=== PATIENT | female | born 1940 | race African-American/Black ===

== ENCOUNTER 2020-08-15 18:28 | Inpatient (IN) | payer OTHER ==
[~2020-08-15] VITALS: Ht 160 cm; Wt 57.6 kg
[2020-08-15] MEDS ORDERED: CEFTRIAXONE 1 G PREMIX 50 ML IV ONE (18:45)
[2020-08-15 21:53] LABS: HEMATOCRIT. 30.7 % (36.0-48.0); MEAN CORPUSCULAR HEMOGLOBIN 29.5 pg (28.0-32.0); MEAN CORPUSCULAR VOLUME 90.7 fL (81.0-99.0); MEAN PLATELET VOLUME 8.2 fl (7.4-10.4); PLATELET 149 x1000/uL (130-400); RED BLOOD CELL COUNT 3.38 mill/uL (4.2-5.4); RED CELL DISTRIBUTION WIDTH 16.7 % (11.6-14.6)
[2020-08-15 22:14] LABS: PLATELET ESTIMATE NORMAL
[2020-08-15] MEDS ORDERED: SODIUM CHLORIDE 0.9% 1,000 ML IV ONE (23:00)
[2020-08-16 06:15] LABS: CLARITY URINE CLEAR (CLEAR); COLOR URINE YELLOW (YELLOW); KETONES URINE TRACE (NEGATIVE); LEUKOCYTE ESTERASE URINE 1+ (NEGATIVE); NITRITE URINE NEGATIVE (NEGATIVE); OCCULT BLOOD URINE 1+ (NEGATIVE); PROTEIN URINE 3+ (NEGATIVE); SPECIFIC GRAVITY URINE 1.017 (1.005-1.030); UROBILINOGEN URINE 0.2 E.U./dL (0.2-1.0)
[2020-08-16] MEDS ORDERED: ONDANSETRON HCL 4MG/2ML INJ IV PRN (10:30)
[2020-08-16] MEDS ORDERED: ACETAMINOPHEN 325MG TABLET PO PRN ×2 (10:30)
[2020-08-16] MEDS ORDERED: CLONIDINE 0.1MG TABLET PO PRN (10:30)
[2020-08-16] MEDS ORDERED: DIPHENHYDRAMINE 50MG/ML VIAL IV PRN (10:30)
[2020-08-16] MEDS ORDERED: MVI, ADULT NO.1 10 ML, FOLIC ACID 1 MG, THIAMINE HCL 100 MG in SODIUM CHLORIDE 0.9% 1,0... IV SCH ×4 (11:00)
[2020-08-16 12:00] VITALS: BP 124/77
[2020-08-16 13:28] VITALS: BP 124/77
[2020-08-16] MEDS: ENOXAPARIN 30MG/0.3ML SYR SUBCUT SCH (13:33)
[2020-08-16 16:00] VITALS: BP 136/74
[2020-08-16] MEDS ORDERED: ATEN50TA PO (19:34)
[2020-08-16] MEDS ORDERED: BALS750C6 PO (19:34)
[2020-08-16] MEDS ORDERED: OMEP20CA14 PO (19:34)
[2020-08-16] MEDS ORDERED: AMLO10TA80 PO (19:34)
[2020-08-16 20:00] VITALS: BP 127/67
[2020-08-16] MEDS ORDERED: ZOLPIDEM TARTRATE 5MG TABLET PO PRN (21:00)
[2020-08-17] VITALS: BP 127/75
[2020-08-17 04:00] VITALS: BP 131/69
[2020-08-17 08:00] VITALS: BP 126/62
[2020-08-17] MEDS: ENOXAPARIN 30MG/0.3ML SYR SUBCUT SCH (09:31)
[2020-08-17 12:00] VITALS: BP 127/73
[2020-08-17 16:00] VITALS: BP 142/75
[2020-08-17 20:00] VITALS: BP 110/78
[2020-08-17] MEDS: DEXT 5%/0.45% NACL KCL 10MEQ/L 1,000 ML IV SCH (21:35)
[2020-08-18] VITALS: BP 109/82
[2020-08-18 04:00] VITALS: BP 137/79
[2020-08-18 08:00] VITALS: BP 130/76
[2020-08-18] MEDS: DEXT 5%/0.45% NACL KCL 10MEQ/L 1,000 ML IV SCH (08:33)
[2020-08-18] MEDS: ENOXAPARIN 30MG/0.3ML SYR SUBCUT SCH (08:33)
[2020-08-18 12:00] VITALS: BP 124/82
[2020-08-18 16:00] VITALS: BP 144/87
[2020-08-18 16:08] LABS: HEMATOCRIT. 28.7 % (36.0-48.0); HEMOGLOBIN. 9.8 g/dL (12.0-16.0); MEAN CORPUSCULAR HEMOGLOBIN 30.5 pg (28.0-32.0); MEAN CORPUSCULAR VOLUME 89.5 fL (81.0-99.0); MEAN PLATELET VOLUME 8.2 fl (7.4-10.4); PLATELET 115 x1000/uL (130-400); RED CELL DISTRIBUTION WIDTH 17.1 % (11.6-14.6)
[2020-08-18] MEDS: MEGESTROL ACETATE 400 MG/10 ML UDC PO SCH (17:54)
[2020-08-18] MEDS: HYDROCODONE/ACETAMINOPHEN 5/325MG TABLET PO PRN (17:54)
[2020-08-18 20:00] VITALS: BP 132/77
[2020-08-18 22:07] LABS: PLATELET ESTIMATE DECREASED
[2020-08-19] VITALS: BP 131/77
[2020-08-19 04:00] VITALS: BP 117/84
[2020-08-19] MEDS: DEXT 5%/0.45% NACL KCL 10MEQ/L 1,000 ML IV SCH ×2 (05:22→12:20)
[2020-08-19 07:30] VITALS: BP 128/75
[2020-08-19] MEDS: ENOXAPARIN 30MG/0.3ML SYR SUBCUT SCH (09:00)
[2020-08-19] MEDS: MEGESTROL ACETATE 400 MG/10 ML UDC PO SCH ×2 (09:00→18:04)
[2020-08-19 12:00] VITALS: BP 104/47
[2020-08-19 16:00] VITALS: BP 136/58
[2020-08-19] MEDS ORDERED: POTASSIUM CHLORIDE 20MEQ/PACKET PO NR (17:00)
[2020-08-19 20:00] VITALS: BP 134/84
[2020-08-20] VITALS: BP 130/83
[2020-08-20] MEDS: DEXT 5%/0.45% NACL KCL 10MEQ/L 1,000 ML IV SCH ×2 (01:42→14:06)
[2020-08-20 04:00] VITALS: BP 109/88
[2020-08-20 06:49] LABS: HEMATOCRIT. 28.6 % (36.0-48.0); HEMOGLOBIN. 9.9 g/dL (12.0-16.0); MEAN CORPUSCULAR HEMOGLOBIN 30.7 pg (28.0-32.0); MEAN CORPUSCULAR VOLUME 89.2 fL (81.0-99.0); MEAN PLATELET VOLUME 8.3 fl (7.4-10.4); PLATELET 111 x1000/uL (130-400); RED BLOOD CELL COUNT 3.21 mill/uL (4.2-5.4); RED CELL DISTRIBUTION WIDTH 17.8 % (11.6-14.6)
[2020-08-20 06:57] LABS: INR 0.9; PROTHROMBIN TIME 9.9 sec (9.6-11.0)
[2020-08-20 07:26] LABS: VITAMIN B12 SERUM >2000 pg/mL pg/mL (211-911)
[2020-08-20 07:50] VITALS: BP 125/88
[2020-08-20] MEDS: MEGESTROL ACETATE 400 MG/10 ML UDC PO SCH ×3 (09:00→18:12)
[2020-08-20] MEDS: POTASSIUM CHLORIDE 20MEQ/PACKET PO NR ×2 (09:15→14:06)
[2020-08-20] MEDS ORDERED: THROMBIN (BOVINE) 5000 UNITS/VIAL TOP ONE (09:44)
[2020-08-20] MEDS ORDERED: BACITRACIN 50,000 UNITS/VIAL ONE (09:44)
[2020-08-20] MEDS ORDERED: LIDOCAINE HCL/EPINEPHRINE 1%-EPI 1:100,000 20 ML VIAL ONE (09:44)
[2020-08-20] MEDS ORDERED: SODIUM CHLORIDE 0.9% INJ 10ML FLUSH IVF ONE (09:44)
[2020-08-20 11:50] VITALS: BP 101/62
[2020-08-20] MEDS ORDERED: MAGNESIUM 2 G PREMIX 50 ML IV NR (12:00)
[2020-08-20 12:10] VITALS: BP 121/84
[2020-08-20 20:31] VITALS: BP 134/91
[2020-08-20 20:49] LABS: PLATELET ESTIMATE DECREASED
[2020-08-21 00:12] VITALS: BP 129/86
[2020-08-21 04:00] VITALS: BP 148/90
[2020-08-21 08:00] VITALS: BP 142/98
[2020-08-21] MEDS: DEXT 5%/0.45% NACL KCL 10MEQ/L 1,000 ML IV SCH ×2 (08:18→17:22)
[2020-08-21] MEDS: MEGESTROL ACETATE 400 MG/10 ML UDC PO SCH ×2 (09:00→17:23)
[2020-08-21] MEDS: MULTIVITAMINS,THER W-MINERALS TABLET PO SCH (09:48)
[2020-08-21] MEDS: ZINC SULFATE 220 MG ( 50 ) CAPSULE PO SCH (09:48)
[2020-08-21 12:00] VITALS: BP 133/85
[2020-08-21 20:00] VITALS: BP 101/70
[2020-08-22] VITALS: BP 111/68
[2020-08-22 04:00] VITALS: BP 107/65
[2020-08-22] MEDS: HYDROCODONE/ACETAMINOPHEN 5/325MG TABLET PO PRN ×2 (04:54→09:47)
[2020-08-22 08:00] VITALS: BP 110/75
[2020-08-22] MEDS: MEGESTROL ACETATE 400 MG/10 ML UDC PO SCH ×2 (08:25→16:30)
[2020-08-22] MEDS: ZINC SULFATE 220 MG ( 50 ) CAPSULE PO SCH (08:26)
[2020-08-22] MEDS: MULTIVITAMINS,THER W-MINERALS TABLET PO SCH (08:26)
[2020-08-22 12:00] VITALS: BP 113/74
[2020-08-22] MEDS: DEXT 5%/0.45% NACL KCL 10MEQ/L 1,000 ML IV SCH (13:46)
[2020-08-22 16:00] VITALS: BP 92/64
[2020-08-22 20:00] VITALS: BP 146/104
[2020-08-23] VITALS (43 sets, daily range): BP systolic 58–144; BP diastolic 41–95
[2020-08-23] MEDS: MULTIVITAMINS,THER W-MINERALS TABLET PO SCH ×2 (09:00→09:20)
[2020-08-23] MEDS: ZINC SULFATE 220 MG ( 50 ) CAPSULE PO SCH ×2 (09:00→09:20)
[2020-08-23] MEDS: MEGESTROL ACETATE 400 MG/10 ML UDC PO SCH ×2 (09:00→09:20)
[2020-08-23] MEDS ORDERED: NOREPINEPHRINE 8MG/250ML PMX 250 ML IV PRN ×2 (10:30→12:45)
[2020-08-23] MEDS ORDERED: MORPHINE SULFATE 2 MG/ML CPJ (NOT FOR IM USE) IV PRN (10:30)
[2020-08-23] MEDS ORDERED: ETOMIDATE 2MG/ML 10ML VIAL IV ONE (10:30)
[2020-08-23] MEDS ORDERED: PROPOFOL 10MG/ML 100ML 100 ML IV PRN ×2 (10:30→12:00)
[2020-08-23] MEDS ORDERED: IPRATROPIUM/ALBUTEROL 0.5-3(2.5)MG/3ML NEB HHN PRN (11:30)
[2020-08-23] MEDS: NOREPINEPHRINE 8 MG in DEXT 5% WATER 242 ML IV PRN ×2 (12:00→22:39)
[2020-08-23 13:07] LABS: MEAN CORPUSCULAR HEMOGLOBIN 30.4 pg (28.0-32.0); MEAN CORPUSCULAR VOLUME 90.9 fL (81.0-99.0); MEAN PLATELET VOLUME 7.7 fl (7.4-10.4); PLATELET 67 x1000/uL (130-400); RED BLOOD CELL COUNT 3.63 mill/uL (4.2-5.4); RED CELL DISTRIBUTION WIDTH 19.2 % (11.6-14.6)
[2020-08-23 13:14] LABS: INR 1.1; PROTHROMBIN TIME 11.4 sec (9.6-11.0)
[2020-08-23 13:17] LABS: CHLORIDE 112 mEq/L (98-107)
[2020-08-23 13:29] LABS: CREATINE KINASE 100 IU/L (26-192)
[2020-08-23 13:31] LABS: CREATINE KINASE MB FRACTION 9.1 ng/mL (0.5-3.6)
[2020-08-23] MEDS: IPRATROPIUM/ALBUTEROL 0.5-3(2.5)MG/3ML NEB HHN SCH ×2 (17:11→20:03)
[2020-08-23 17:12] LABS: BG BASE EXCESS -21.7 mmol/L (-2.0-2.0); BG CARBOXYHEMOGLOBIN 0.3 % (0.5-1.5); BG DEOXYHEMOGLOBIN 0.5 % (0.0-5.0); BG FRACTION INSPIRED OXYGEN 100; BG HCO3 ACT 5.5 mmol/L (22.0-26.0); BG METHEMOGLOBIN 0.4 % (0.0-1.5); BG OXYGEN SATURATION 99.5 % (92.0-98.5); BG OXYHEMOGLOBIN 98.8 % (94.0-97.0); BG PH 7.126 (7.350-7.450); BG PO2 374.5 mmHg (75.0-100.0); BG SAMPLE SITE RIGHT RADIAL; BG TOTAL HEMOGLOBIN 12.4 g/dL (12.0-18.0); BG VENT MODE VENT - AC
[2020-08-23] MEDS ORDERED: SODIUM BICARBONATE 8.4% 1 MEQ/ML 50ML SYR IV NR (17:36)
[2020-08-23 21:48] LABS: BG BASE EXCESS -13.3 mmol/L (-2.0-2.0); BG CARBOXYHEMOGLOBIN 0.3 % (0.5-1.5); BG DEOXYHEMOGLOBIN 1.1 % (0.0-5.0); BG FRACTION INSPIRED OXYGEN 70; BG HCO3 ACT 9.1 mmol/L (22.0-26.0); BG METHEMOGLOBIN 0.1 % (0.0-1.5); BG OXYGEN SATURATION 98.9 % (92.0-98.5); BG OXYHEMOGLOBIN 98.5 % (94.0-97.0); BG PCO2 14.9 mmHg (35.0-45.0); BG PH 7.402 (7.350-7.450); BG SAMPLE SITE RIGHT BRACHIAL; BG TOTAL HEMOGLOBIN 10.9 g/dL (12.0-18.0); BG VENT MODE VENT - AC
[2020-08-24] VITALS (47 sets, daily range): BP systolic 0–121; BP diastolic 0–72
[2020-08-24] MEDS: PHENYLEPHRINE 50 MG in DEXT 5% WATER 245 ML IV PRN ×3 (00:59→10:30)
[2020-08-24] MEDS: IPRATROPIUM/ALBUTEROL 0.5-3(2.5)MG/3ML NEB HHN SCH ×2 (01:06→09:40)
[2020-08-24 03:03] LABS: BG BASE EXCESS -11.8 mmol/L (-2.0-2.0); BG CARBOXYHEMOGLOBIN 0.2 % (0.5-1.5); BG DEOXYHEMOGLOBIN 2.5 % (0.0-5.0); BG FRACTION INSPIRED OXYGEN 60; BG HCO3 ACT 10.5 mmol/L (22.0-26.0); BG METHEMOGLOBIN 0.3 % (0.0-1.5); BG OXYGEN SATURATION 97.5 % (92.0-98.5); BG PCO2 16.4 mmHg (35.0-45.0); BG PH 7.425 (7.350-7.450); BG PO2 97.4 mmHg (75.0-100.0); BG SAMPLE SITE RIGHT RADIAL; BG TOTAL HEMOGLOBIN 10.2 g/dL (12.0-18.0); BG VENT MODE VENT - AC
[2020-08-24] MEDS: NOREPINEPHRINE 8 MG in DEXT 5% WATER 242 ML IV PRN ×3 (03:14→10:23)
[2020-08-24] MEDS ORDERED: SODIUM BICARBONATE 8.4% 1 MEQ/ML 50ML SYR IV NR (03:30)
[2020-08-24] MEDS: VASOPRESSIN 20 UNIT in SODIUM CHLORIDE 0.9% 99 ML IV PRN ×2 (03:45→10:30)
[2020-08-24] MEDS ORDERED: SODIUM BICARBONATE 50 MEQ in DEXTROSE 5% WATER 1,000 ML IV SCH (04:00)
[2020-08-24 06:05] LABS: HEMOGLOBIN. 10.2 g/dL (12.0-16.0); MEAN CORPUSCULAR HEMOGLOBIN 30.1 pg (28.0-32.0); MEAN CORPUSCULAR VOLUME 91.5 fL (81.0-99.0); MEAN PLATELET VOLUME 8.3 fl (7.4-10.4); PLATELET 66 x1000/uL (130-400); RED BLOOD CELL COUNT 3.39 mill/uL (4.2-5.4); RED CELL DISTRIBUTION WIDTH 18.9 % (11.6-14.6)
[2020-08-24] MEDS ORDERED: LIDOCAINE HCL 1% 20ML VIAL (Pyxis) INJ ONE (07:06)
[2020-08-24] MEDS: ZINC SULFATE 220 MG ( 50 ) CAPSULE PO SCH (09:00)
[2020-08-24] MEDS ORDERED: DEXT 5%/0.45% NACL 1000ML 1,000 ML IV SCH (09:30)
[2020-08-24] MEDS ORDERED: PIPERACILLIN/TAZOBACTAM 2.25 G in DEXTROSE 5% WATER 50 ML IV SCH (11:00)
[2020-08-24] MEDS ORDERED: AMIODARONE HCL 150 MG in DEXT 5% WATER 100 ML IV NR (11:00)
[2020-08-24] MEDS ORDERED: AMIODARONE HCL 900 MG in DEXT 5% WATER 500 ML IV PRN (11:00)
[2020-08-24 13:07] LABS: BG BASE EXCESS -18.2 mmol/L (-2.0-2.0); BG CARBOXYHEMOGLOBIN 0.3 % (0.5-1.5); BG DEOXYHEMOGLOBIN 1.7 % (0.0-5.0); BG FRACTION INSPIRED OXYGEN 60; BG HCO3 ACT 6.4 mmol/L (22.0-26.0); BG METHEMOGLOBIN 0.2 % (0.0-1.5); BG OXYGEN SATURATION 98.3 % (92.0-98.5); BG OXYHEMOGLOBIN 97.8 % (94.0-97.0); BG PCO2 13.9 mmHg (35.0-45.0); BG SAMPLE SITE RIGHT RADIAL; BG TOTAL HEMOGLOBIN 9.3 g/dL (12.0-18.0); BG TOTAL RESPIRATORY RATE 40 b/min; BG VENT MODE VENT - AC
[2020-08-24] MEDS ORDERED: PIPERACILLIN/TAZOBACTAM 3.375 G/VIAL IV SCH (14:00)
[2020-08-24 14:20] LABS: NUCLEATED RED BLOOD CELLS 5 /100 WBC
[2020-08-24 14:21] LABS: PLATELET ESTIMATE DECREASED
[2020-08-24 15:38] LABS: NUCLEATED RED BLOOD CELLS 2 /100 WBC; PLATELET ESTIMATE DECREASED
== END 2020-08-24 17:10 | disposition expired | DRG 551 ==
LOC: ER 18:28 → 7WST 08-16 03:09 → ENRESERV 08-16 09:12 → 6WST 08-18 09:20 → 5EST 08-23 11:40
PROVIDERS: ADMIT Internal Medicine; ATTEND Internal Medicine
PROC: 5A1935Z Respiratory Ventilation, Less than 24 Consecutive Hours (ICD-10-PCS; principal; 2020-08-23)
PROC: 0BH18EZ Insertion of Endotracheal Airway into Trachea, Via Natural or Artificial Opening Endoscopic (ICD-10-PCS; 2020-08-23)
PROC: 02HV33Z Insertion of Infusion Device into Superior Vena Cava, Percutaneous Approach (ICD-10-PCS; 2020-08-24)
PROC: B548ZZA Ultrasonography of Superior Vena Cava, Guidance (ICD-10-PCS; 2020-08-24)
PROC: 5A12012 Performance of Cardiac Output, Single, Manual (ICD-10-PCS; 2020-08-24)
DX: M48.061 Spinal stenosis, lumbar region without neurogenic claudication (principal); G93.41 Metabolic encephalopathy; E43 Unspecified severe protein-calorie malnutrition; J96.00 Acute respiratory failure, unspecified whether with hypoxia or hypercapnia; K50.90 Crohn's disease, unspecified, without complications; I47.1 Supraventricular tachycardia; R65.10 Systemic inflammatory response syndrome (SIRS) of non-infectious origin without acute organ dysfunction; G82.20 Paraplegia, unspecified; R62.7 Adult failure to thrive; I12.9 Hypertensive chronic kidney disease with stage 1 through stage 4 chronic kidney disease, or unspecified chronic kidney disease; N18.9 Chronic kidney disease, unspecified; D50.9 Iron deficiency anemia, unspecified; E78.5 Hyperlipidemia, unspecified; M25.78 Osteophyte, vertebrae; M41.86 Other forms of scoliosis, lumbar region; M43.12 Spondylolisthesis, cervical region; M47.892 Other spondylosis, cervical region; M48.02 Spinal stenosis, cervical region; M51.26 Other intervertebral disc displacement, lumbar region; Z96.642 Presence of left artificial hip joint; Z66 Do not resuscitate; Z20.828 Contact with and (suspected) exposure to other viral communicable diseases; Z93.3 Colostomy status; Z68.22 Body mass index [BMI] 22.0-22.9, adult; Z79.899 Other long term (current) drug therapy; Z87.891 Personal history of nicotine dependence
CPT/HCPCS: 36415; 36600; 71045; 72141; 72146; 72148; 74018; 76937; 80048; 80053; 80061; 80076; 81003; 82375; 82550; 82553; 82607; 82805; 82962; 83540; 83550; 83605; 83735; 84145; 84443; 84478; 84484; 85025; 85044; 86850; 86900; 87070; 87077; 87186; 87804; 93005; 93306; 97162; 97166; 99285; C1725; C1893; J0282; J1650; J2370; J2405; J2543; J2704; J3411; J3475; J3490; J7030; J7050; J7060; J7070; U0003; A4315